=== PATIENT | female | born 1970 | race Caucasian/White ===

== ENCOUNTER 2016-12-29 21:12 | Emergency (ER) | payer OTHER ==
[2016-12-29 21:23] VITALS: BP 135/90; BMI 28.1
--- NOTE | 2016-12-29 21:49 | DR.GENAD ---
HPI - PCP Primary Care Physician: DAISY MUÑOZ - Complaint/Symptoms Chief Complaint:: HEADACHE,N/V,GENERALIZED WEAKNESS AND PAIN - Nurses notes reviewed Nurses Notes Review: Yes - Source History Provided: Patient - Mode of Arrival Mode of Arrival: Ambulatory - Timing Onset of Chief Complaint: 12/22/16 Came on: Gradually - Duration Duration: Intermittent How lon Duration: Days - Location Location: generalized - Severity Severity: Moderate - Modifying Factors Worsens:: food - Associated Signs and Symptoms Associated Signs and Symptoms: diarrhea - Other History Other History: diabetes PMH - PMH Past Medical History: Yes Past Medical History: Diabetes, GERD Past Surgical History: Yes Surgical History: Appendectomy, Cholecystectomy, Hysterectomy, Ortho Surgery, Tonsillectomy - Family History History of Family Medical Conditions: No - Social History Does patient currently use any type of tobacco product: Yes Have you used tobacco products in the last 12 months: Yes Type of Tobacco Use: Cigarettes Does any household member use tobacco: Yes Alcohol Use: Rarely, Occasionally Do you use any recreational Drugs:: No Lives With: Family Lives Where: Home - infectious screening In the last 2 months have you had wt loss of >10#?: NO Have you had fever, night sweats or hemotysis?: No Have you traveled outside the country in the last 6 months?: No Isolation: Standard ROS - Review of Systems Constitutional: No Symptoms Reported Eyes: No Symptoms Reported ENTM: No Symptoms Reported Respiratoy: No Symptoms Reported Cardiovascular: No Symptoms Reported Gastrointestinal/Abdominal: Diarrhea, Nausea, Vomiting Genitourinary: No Symptoms Reported Neurological: Weakness Musculoskeletal: Muscle Pain (achy) Integumentary: No Symptoms Reported Hematologic/Lymphatic: No Symptoms Reported Endocrine: No Symptoms Reported Psychiatric: No Symptoms Reported All Other Systems: Reviewed and Negative PE - Vital Signs Vitals: Temperature 97.8 F Pulse Rate 99 Respiratory Rate 16 Blood Pressure 135/90 O2 Sat by Pulse Oximetry 97 - General Limitations: No Limitations General Appearance: Alert, In No Apparent Distress - Head Head Exam: Normal Inspection - Eyes Eye exam: Normal Appearance, EOMI. negative: Scleral Icterus, Conjunctival Injection - ENT ENT Exam: Mucous Membranes Dry External Ear Exam: Normal External Inspection Throat Exam: Normal Inspection - Neck Neck Exam: Normal Inspection, Full ROM, Trachea Midline - Chest Chest Inspection: Normal Inspection, Symmetric Chest Wall Rise. negative: Tenderness - Respiratory Respiratory Exam: Normal Lung Sounds Bilat. negative: Accessory Muscle Use, Respiratory Distress Respiratory Exam: Bilateral Clear to Auscultation - Cardiovascular Cardiovascular Exam: Regular Rate, Normal Rhythm - Abdominal Exam Abdominal Exam: Normal Inspection, Normal Bowel Sounds, Soft. negative: Distention, Tenderness, Guarding - Extremities Extremities Exam: Normal Inspection, Full ROM - Back Back Exam: Normal Inspection, Full ROM - Neurologic Neurological Exam: Alert, Oriented X3, CN II-XII Intact - Psychiatric Psychiatric Exam: Depressed - Skin Skin Exam: Intact, Normal Color ROR - Labs Reviewed Result Diagrams: 12/29/16 21:54 12/29/16 21:54 Laboratory: WBC 11.6 X10^3/uL (3.6-10.0) H 12/29/16 21:54 RBC 5.78 X10^6/uL (3.5-5.4) H 12/29/16 21:54 Hgb 17.6 g/dL (12.0-16.0) H 12/29/16 21:54 Hct 50.9 % (36.0-47.0) H 12/29/16 21:54 MCV 88.1 fL (80.0-100.0) 12/29/16 21:54 MCH 30.4 pg (27.0-34.0) 12/29/16 21:54 MCHC 34.5 g/dL (33.0-35.0) 12/29/16 21:54 RDW 12.5 % (11.6-16.5) 12/29/16 21:54 Plt Count 257 X10^3/uL (150.0-450.0) 12/29/16 21:54 MPV 7.1 fL (7.4-11.0) L 12/29/16 21:54 Neut % 76.4 % (42.0-75.0) H 12/29/16 21:54 Lymph % 16.7 % (21.0-51.0) L 12/29/16 21:54 [place] % 5.8 % (0.0-13.0) 12/29/16 21:54 Eos % 0.6 % (0.9-2.9) L 12/29/16 21:54 Baso % 0.5 % (0.2-1.0) 12/29/16 21:54 Neut # 8.8 x10^3/uL (2.2-4.8) H 12/29/16 21:54 Lymph # 1.9 X10^3/uL (1.3-2.9) 12/29/16 21:54 [place] # 0.7 x10^3/uL (0.3-0.8) 12/29/16 21:54 Eos # 0.1 x10^3/uL (0.0-0.2) 12/29/16 21:54 Baso # 0.1 X10^3/uL (0.0-0.1) 12/29/16 21:54 Absolute Nucleated RBC 0.0 /100WBC 12/29/16 21:54 Sodium 136 mmol/L (136-145) 12/29/16 21:54 Corrected Sodium 137 mmol/L (136-145) 12/29/16 21:54 Potassium 3.9 mmol/L (3.5-5.1) 12/29/16 21:54 Chloride 99 mmol/L (98-107) 12/29/16 21:54 Carbon Dioxide 23.3 mmol/L (21-32) 12/29/16 21:54 BUN 13 mg/dL (7-18) 12/29/16 21:54 Creatinine 1.06 mg/dL (0.55-1.02) H 12/29/16 21:54 Est GFR (MDRD) Af Amer > 60 (>60) 12/29/16 21:54 Est GFR (MDRD) Non-Af 59 (>60) 12/29/16 21:54 Glucose 123 mg/dL (65-99) H 12/29/16 21:54 Calcium 9.8 mg/dL (8.5-10.1) 12/29/16 21:54 Corrected Calcium TNP 12/29/16 21:54 Total Bilirubin 0.50 mg/dL (0.2-1.0) 12/29/16 21:54 AST 62 Units/L (15-37) H 12/29/16 21:54 ALT 101 Units/L (12-78) H 12/29/16 21:54 Alkaline Phosphatase 230 Units/L (46-116) H 12/29/16 21:54 Total Protein 8.5 g/dL (6.4-8.2) H 12/29/16 21:54 Albumin 3.7 g/dL (3.4-5.0) 12/29/16 21:54 Globulin 4.8 g/dL (2.5-4.5) H 12/29/16 21:54 Albumin/Globulin Ratio 0.8 Ratio (1.1-2.1) L 12/29/16 21:54 Specimen Type Clean catch urine 12/29/16 23:25 Urine Color Dark yellow (YELLOW) 12/29/16 23:25 Urine Appearance Slightly hazy (CLEAR) 12/29/16 23:25 Urine pH 6.0 (5.0 - 8.0) 12/29/16 23:25 Ur Specific [place] 1.020 (1.000-1.030) 12/29/16 23:25 Urine Protein 2+ (NEGATIVE) 12/29/16 23:25 Urine Glucose (UA) Negative (NEGATIVE) 12/29/16 23:25 Urine Ketones 1+ (NEGATIVE) 12/29/16 23:25 Urine Occult Blood 1+ (NEGATIVE) 12/29/16 23:25 Urine Nitrite Negative (NEGATIVE) 12/29/16 23:25 Urine Bilirubin 2+ (NEGATIVE) 12/29/16 23:25 Urine Urobilinogen 1+ (NORMAL) 12/29/16 23:25 Ur Leukocyte Esterase 1+ (NEGATIVE) 12/29/16 23:25 Urine RBC 0-3 /HPF (NEGATIVE) 12/29/16 23:25 Urine WBC 6-8 /HPF (NEGATIVE) 12/29/16 23:25 Ur Squamous Epith Cells Few /HPF (NEGATIVE) 12/29/16 23:25 Urine Bacteria 2+ /HPF (NEGATIVE) 12/29/16 23:25 Hyaline Casts Few /LPF (NEGATIVE) 12/29/16 23:25 Urine Mucus Moderate /HPF (NEGATIVE) 12/29/16 23:25 Ur Culture Indicated? Yes/culture set up 12/29/16 23: Salicylates 5.2 mg/dL (2.8-20) 12/29/16 21:52 Acetaminophen 0.0 ug/mL (10-30) L 12/29/16 21:52 Acetone, Semi-Quant Negative (NEGATIVE) 12/29/16 21:54 - Diagnosis Discharge Problem: Elevated liver enzymes UTI (urinary tract infection) Qualifiers: Urinary tract infection type: acute cystitis Hematuria presence: without hematuria Qualified Code(s): N30.00 - Acute cystitis without hematuria - Discharge Plan Condition: Stable Prescriptions: Nitrofurantoin Macro [Macrobid Cap 100 mg Ext Rel] 100 mg PO BID #14 cap Ondansetron [Zofran Odt] 4 mg PO Q8H PRN #12 tab PRN Reason: Nausea/Vomiting - Follow ups/Referrals Follow ups/Referrals: ,Misc [Primary Care Provider] - 3 days - Instructions
[2016-12-29] MEDS ORDERED: NS 500 ML IV 1,000 ML IV ONE (21:55)
[2016-12-29] MEDS ORDERED: PROTONIX INJ 40 MG VIAL IVP ONE (21:55)
[2016-12-29] MEDS ORDERED: ZOFRAN INJ 4 MG VIAL IVP ONE ×2 (21:55→23:37)
[2016-12-29 22:10] LABS: BASOPHILS # (AUTO) 0.1 X10^3/uL (0.0-0.1); BASOPHILS % (AUTO) 0.5 % (0.2-1.0); EOSINOPHILS # (AUTO) 0.1 x10^3/uL (0.0-0.2); EOSINOPHILS % (AUTO) 0.6 % (0.9-2.9); HEMATOCRIT 50.9 % (36.0-47.0); HEMOGLOBIN 17.6 g/dL (12.0-16.0); LYMPHOCYTES # (AUTO) 1.9 X10^3/uL (1.3-2.9); LYMPHOCYTES % (AUTO) 16.7 % (21.0-51.0); MEAN CORPUSCULAR HEMOGLOBIN 30.4 pg (27.0-34.0); MEAN CORPUSCULAR HGB CONC 34.5 g/dL (33.0-35.0); MEAN CORPUSCULAR VOLUME 88.1 fL (80.0-100.0); MEAN PLATELET VOLUME 7.1 fL (7.4-11.0); MONOCYTES # (AUTO) 0.7 x10^3/uL (0.3-0.8); MONOCYTES % (AUTO) 5.8 % (0.0-13.0); NEUTROPHILS # (AUTO) 8.8 x10^3/uL (2.2-4.8); NEUTROPHILS % (AUTO) 76.4 % (42.0-75.0); PLATELET COUNT 257 X10^3/uL (150.0-450.0); RED BLOOD COUNT 5.78 X10^6/uL (3.5-5.4); RED CELL DISTRIBUTION WIDTH 12.5 % (11.6-16.5); WHITE BLOOD COUNT 11.6 X10^3/uL (3.6-10.0)
[2016-12-29] MEDS ORDERED: ZOFRAN INJ 4 MG VIAL ONE (22:12)
[2016-12-29] MEDS ORDERED: PROTONIX INJ 40 MG VIAL ONE (22:12)
[2016-12-29] MEDS ORDERED: NS 500 ML IV 500 ML IV ONE (22:13)
[2016-12-29 22:21] LABS: ALANINE AMINOTRANSFERASE 101 Units/L (12-78); ALBUMIN 3.7 g/dL (3.4-5.0); ALKALINE PHOSPHATASE 230 Units/L (46-116); ASPARTATE AMINO TRANSFERASE 62 Units/L (15-37); BLOOD UREA NITROGEN 13 mg/dL (7-18); CALCIUM 9.8 mg/dL (8.5-10.1); CARBON DIOXIDE 23.3 mmol/L (21-32); CHLORIDE 99 mmol/L (98-107); COR NA(FOR HYPERGLY) 137 mmol/L (136-145); CREATININE 1.06 mg/dL (0.55-1.02); GLUCOSE 123 mg/dL (65-99); SODIUM 136 mmol/L (136-145); TOTAL PROTEIN 8.5 g/dL (6.4-8.2); eGFR BLACK RACES > 60 (>60); eGFR NON BLACK RACES 59 (>60)
[2016-12-29] MEDS ORDERED: TORADOL 30 MG VIAL ONE (22:32)
[2016-12-29] MEDS ORDERED: TORADOL 30 MG VIAL IVP ONE (22:40)
[2016-12-29] MEDS ORDERED: DEMEROL INJ IVP ONE (22:57)
[2016-12-29 22:58] LABS: SALICYLATE 5.2 mg/dL (2.8-20)
[2016-12-29] MEDS ORDERED: DEMEROL INJ ONE (23:20)
[2016-12-29 23:35] LABS: BILIRUBIN,URINE 2+ (NEGATIVE); BLOOD/HEMOGLOBIN,URINE 1+ (NEGATIVE); GLUCOSE, URINE NEGATIVE (NEGATIVE); KETONES,URINE 1+ (NEGATIVE); LEUKOCYTE ESTERASE ,URINE 1+ (NEGATIVE); NITRITES,URINE NEGATIVE (NEGATIVE); PROTEIN,URINE 2+ (NEGATIVE); UROBILINOGEN,URINE 1+ (NORMAL)
[2016-12-29 23:47] LABS: APPEARANCE,URINE SLIGHTLY HAZY (CLEAR); BACTERIA,URINE 2+ /HPF (NEGATIVE); COLOR,URINE DARK YELLOW (YELLOW); HYALINE CASTS, URINE FEW /LPF (NEGATIVE); MUCUS,URINE MODERATE /HPF (NEGATIVE); RBC,URINE 0-3 /HPF (NEGATIVE); SQUAMOUS EPITHELIAL CELL,UR FEW /HPF (NEGATIVE)
[2016-12-31 21:28] LABS: HEPATITIS A ANTIBODY IGM Negative (Negative)
[2017-01-04 07:18] LABS: HEPATITIS B CORE IGM Negative (Negative); HEPATITIS B SURFACE ANTIGEN Negative (Negative)
== END 2016-12-30 00:21 | disposition home or self-care (01) ==
LOC: ER 21:29
DX: N30.00 Acute cystitis without hematuria (principal); R74.8 Abnormal levels of other serum enzymes
CPT/HCPCS: 36415; 80053; 80074; 80307; 81001; 82009; 85025; 87086; 96365; 96374; 96375; 99283; 99284; A4222; C9113; G6038; G6039; J1885; J2175; J2405